=== PATIENT | male | born 1955 | race Two or more races ===

== ENCOUNTER 2017-11-02 16:56 | Emergency (ER) | payer MEDICARE, MEDICAID ==
[~2017-11-02] VITALS: Ht 170.2 cm; Wt 72.6 kg
[~2017-11-02 16:56] MED LIST: ASPI81CH43 PO; Atorvastatin Calcium PO; ENA2.5T PO; HYDR-4683 PO
[2017-11-02 17:38] VITALS: BP 139/86
[2017-11-02] MEDS ORDERED: IBUPROFEN 600 MG TAB PO ONE (21:00)
== END 2017-11-02 21:08 | disposition home or self-care (01) ==
LOC: ER 16:56
DX: S00.83XA Contusion of other part of head, initial encounter (principal); S16.1XXA Strain of muscle, fascia and tendon at neck level, initial encounter; J40 Bronchitis, not specified as acute or chronic; I25.10 Atherosclerotic heart disease of native coronary artery without angina pectoris; I10 Essential (primary) hypertension; E78.5 Hyperlipidemia, unspecified; W22.8XXA Striking against or struck by other objects, initial encounter; Y93.89 Activity, other specified; Y92.89 Other specified places as the place of occurrence of the external cause; Y99.8 Other external cause status
CPT/HCPCS: 70450; 71020; 72125